=== PATIENT | female | born 1975 | race Two or more races ===

== ENCOUNTER 2020-07-30 15:51 | Emergency (ER) | payer SELFPAY ==
[~2020-07-30] VITALS: Ht 152.4 cm; Wt 61.7 kg
[2020-07-30 16:21] VITALS: BP 163/93
[2020-07-30] MEDS ORDERED: traMADol HCL 50 MG TAB PO ONE (17:30)
== END 2020-07-30 17:55 | disposition home or self-care (01) ==
LOC: ER 15:51
DX: K04.7 Periapical abscess without sinus (principal); M27.69 Other endosseous dental implant failure